=== PATIENT | male | born 1970 ===

== ENCOUNTER 2017-11-15 07:34 | Emergency (ER) | payer BC ==
[2017-11-15] MEDS ORDERED: NS 0.9% 1000 ML* 1,000 ML IV ONE (09:09)
[2017-11-15] MEDS ORDERED: Ketorolac INJ* 60 MG/2 ML VIAL IV PUSH ONE (09:10)
[2017-11-15] MEDS ORDERED: Orphenadrine Citrate IV* 30 MG/ML 2 ML VIAL IV ONE (09:10)
[2017-11-15] MEDS ORDERED: Dexamethasone IV* 4 MG/ML 5 ML VIAL (20 MG) IVPB ONE (09:10)
[2017-11-15 09:35] LABS: ABS Basophils 0.1 10^3/ul (0-0.2); ABS Eosinophils 0.1 10^3/ul (0-0.6); ABS Lymphocytes 1.1 10^3/ul (1.0-4.8); ABS Monocytes 0.5 10^3/ul (0-0.8); ABS Neutrophils 6.3 10^3/ul (1.5-7.7); ABS Nucleated RBC 0 10^3/ul; Eosinophil % 0.7 % (0-6); Hematocrit 45 % (42-52); Mean Corpuscular HGB Conc 33 g/dl (31-36); Mean Corpuscular Hemoglobin 28 pg (27-31); Mean Corpuscular Volume 85 fL (80-94); Mean Platelet Volume 9 um3 (7.4-10.4); Nucleated Red Blood Cells % 0; Platelet Count 217 10^3/ul (150-450); Red Blood Count 5.32 10^6/ul (4.0-5.4); Red Cell Distribution Width 13 % (10.5-15)
[2017-11-15 09:52] LABS: EGFR Non-African American 97.1 (>60)
--- NOTE | 2017-11-15 10:01 | RAD ---
HISTORY: Back pain, fall COMPARISONS: None VIEWS: 2, Frontal and lateral views of the thoracic spine. FINDINGS: ALIGNMENT: There is mild scoliotic curvature of the spine. VERTEBRAL BODIES: The vertebral body heights are normal. The interpedicular distances are normal. JOINTS: Unremarkable. INTERVERTEBRAL DISCS: There is mild diffuse loss of intervertebral disc height. SOFT TISSUE: Unremarkable OTHER: The visualized lungs are clear. IMPRESSION: MILD DEGENERATIVE CHANGES
--- NOTE | 2017-11-15 10:01 | RAD ---
HISTORY: Back pain, trauma COMPARISONS: None VIEWS: 3 , Frontal, lateral, and coned-down lateral sacral views of the lumbar spine FINDINGS: ALIGNMENT: The alignment is normal. VERTEBRAL BODIES: The vertebral body heights are normal. The interpedicular distances are normal. There is anterolateral marginal osteophyte formation at L5-S1. JOINTS: There is facet osteoporosis at L4-L5 and L5-S1 INTERVERTEBRAL DISCS: There is diffuse loss of intervertebral disc height. SOFT TISSUE: Unremarkable. OTHER: The pelvis is unremarkable. The lung bases are clear. IMPRESSION: DEGENERATIVE DISC DISEASE AND OSTEOARTHRITIS MOST PRONOUNCED AT L4-L5 AND L5-S1.
--- NOTE | 2017-11-15 12:20 | RAD ---
HISTORY: Rib pain status post fall COMPARISONS: None VIEWS: 7, Frontal view of the chest with frontal and oblique views of the left hemithorax FINDINGS: There is no displaced rib fracture or pneumothorax. The visualized lungs are clear. IMPRESSION: NO DISPLACED RIB FRACTURE OR PNEUMOTHORAX
[2017-11-15 12:56] VITALS: BP 110/78
--- NOTE | 2017-11-15 14:41 | ED ---
Alin Vernon Nilda, scribed for Marck Wise MD on 11/15/17 at 0858 . Back Pain - HPI Summary HPI Summary: This patient is a 47 year old M presenting to [facility] accompanied by with a chief complaint of constant left lower back pain that radiates up to the left shoulder s/p slipping on ice 3 days ago. Pt states he took 2 days off from work with no relief. This morning, pt states the sharp pain has become spasmic. The patient rates the pain 8/10 in severity. Symptoms aggravated by deep inspiration and expiration, movement, coughing, and sneezing and alleviated by nothing. Pt denies abnormal urinary symptoms. Pt states his usual back pain normally runs down his right leg. PMHx includes herniated disc 2007. - History of Current Complaint Chief Complaint: EDBackInjuryPain Stated Complaint: FALL BACK PAIN, ON SAT Time Seen by Provider: 11/15/17 08:33 Hx Obtained From: Patient Onset/Duration: Sudden Onset, Lasting Days, Still Present Onset/Duration: Started Days Ago, Traumatic, Still Present Timing: Constant Severity Currently: Severe Pain Intensity: 8 Pain Scale Used: 0-10 Numeric Character: Sharp Aggravating Symptom(s): Movement, Cough, Other - sneezing, deep inspiration and expiration Alleviating Symptom(s): Nothing Associated Signs And Symptoms: Positive: Other - left lower back pain that radiates up to the left shoulder - Allergies/Home Medications Allergies/Adverse Reactions: Allergies Allergy/AdvReac Type Severity Reaction Status Date / Time No Known Allergies Allergy Verified 11/15/17 07:39 PMH/Surg Hx/FS Hx/Imm Hx Musculoskeletal History: Reports: Other Musculoskeletal History - herniated disc Sensory History: Reports: Hx Contacts or Glasses Opthamlomology History: Reports: Hx Contacts or Glasses EENT History: Denies: Hx Deafness Infectious Disease History: No Infectious Disease History: Denies: Traveled Outside the [place] in Last 30 Days - Family History Known Family History: Positive: Other - [place] Negative: Hypertension, Diabetes - Social History Occupation: Employed Full-time Alcohol Use: Occasionally Substance Use Type: Reports: None Smoking Status (MU): Never Smoked Tobacco Review of Systems Genitourinary: Other - negative abnormal urinary symptoms Positive: Other - lower left back pain to left shoulder pain All Other Systems Reviewed And Are Negative: Yes Physical Exam - Summary Physical Exam Summary: General: Patient is a well developed and nourished male without any distress that is lying comfortably in the stretcher. Skin: [place], warm, dry HEAD AND FACE: No signs of trauma. EYES: PERRLA, EOMI x 2. EARS: Hearing grossly intact. MOUTH: Oropharynx within normal limits. NECK: Supple, trachea is midline, no adenopathy, no JVD. CHEST: Symmetric, positive tenderness at palpation in the left rib cage area mid clavicular line LUNGS: CTA bilaterally, no rales, rhonchi or wheezing CVS: RRR, no murmur, rub, or gallop ABDOMEN: soft and Nontender without masses, no guarding or rebound. Bowel sounds are active. No Hepatosplenomegaly. No signs of inguinal hernias. BACK: Patient walked in to the ED room with symmetric ambulation, No signs of limping, antalgic, able to bear weight. No signs of trauma, no soft tissue ecchymosis. Positive paraspinal muscle tenderness in the lumbar spine. No masses palpated. No point tenderness. No CVAT, no flank ecchymosis . No sacroiliac notch tenderness, No saddle anesthesia. ROM: flexion, extension, lateral bending and rotation limited secondary to pain. Straight Leg Raise: Negative. Patellar reflexes: brisk, symmetric Muscle strength lower extremities: Dorsiflexion, plantar flexion of ankles normal. Heel, toe walk normal. Pulses: Femoral, popliteal, posterior tibial, and pedal pulses strong and palpable. Rectal: Patient refused the exam Triage Information Reviewed: Yes Vital Signs On Initial Exam: Initial Vitals Temp Pulse Resp BP Pulse Ox 98.1 F 83 16 139/80 98 11/15/17 07:36 11/15/17 07:36 11/15/17 07:36 11/15/17 07:36 11/15/17 07:36 Vital Signs Reviewed: Yes Diagnostics - Vital Signs Vital Signs Temp Pulse Resp BP Pulse Ox 11/15/17 07:36 98.1 F 83 16 139/80 98 - Laboratory Lab Results: Lab Results 11/15/17 11/15/17 Range/Units 09:25 09:25 WBC 8.0 (3.5-10.8) 10^3/ul RBC 5.32 (4.0-5.4) 10^6/ul Hgb 15.0 (14.0-18.0) g/dl Hct 45 (42-52) % MCV 85 (80-94) fL MCH 28 (27-31) pg MCHC 33 (31-36) g/dl RDW 13 (10.5-15) % Plt Count 217 (150-450) 10^3/ul MPV 9 (7.4-10.4) um3 Neut % (Auto) 78.8 (38-83) % Lymph % (Auto) 14.0 L (25-47) % [place] % (Auto) 5.7 (1-9) % Eos % (Auto) 0.7 (0-6) % Baso % (Auto) 0.8 (0-2) % Absolute Neuts (auto) 6.3 (1.5-7.7) 10^3/ul Absolute Lymphs (auto) 1.1 (1.0-4.8) 10^3/ul Absolute Monos (auto) 0.5 (0-0.8) 10^3/ul Absolute Eos (auto) 0.1 (0-0.6) 10^3/ul Absolute Basos (auto) 0.1 (0-0.2) 10^3/ul Absolute Nucleated RBC 0 10^3/ul Nucleated RBC % 0 Sodium 136 (133-145) mmol/L Potassium 4.2 (3.5-5.0) mmol/L Chloride 103 (101-111) mmol/L Carbon Dioxide 26 (22-32) mmol/L Anion Gap 7 (2-11) mmol/L BUN 10 (6-24) mg/dL Creatinine 0.84 (0.67-1.17) mg/dL Est GFR ( Amer) 124.9 (>60) Est GFR (Non-Af Amer) 97.1 (>60) BUN/Creatinine Ratio 11.9 (8-20) Glucose 86 (70-100) mg/dL Calcium 9.8 (8.6-10.3) mg/dL Total Bilirubin 1.10 H (0.2-1.0) mg/dL AST 21 (13-39) U/L ALT 14 (7-52) U/L Alkaline Phosphatase 85 (34-104) U/L C-Reactive Protein 4.92 (< 5.00) mg/L Total Protein 8.2 (6.4-8.9) g/dL Albumin 4.3 (3.2-5.2) g/dL Globulin 3.9 (2-4) g/dL Albumin/Globulin Ratio 1.1 (1-3) Result Diagrams: 11/15/17 09:25 11/15/17 09:25 Lab Statement: Any lab studies that have been ordered have been reviewed, and results considered in the medical decision making process. - Radiology Ribs XR Radiology Interpretation Completed By: Radiologist - Ribs XR, per radiologist, reveals no displaced rib fracture or pneumothorax. Dr. Wise has reviewed this radiology report. T-Spine XR Radiology Interpretation Completed By: Radiologist - T-spine XR, per radiologist , reveals mild degenerative changes. Dr. Wise has reviewed this radiology report. Lumbar XR Radiology Interpretation Completed By: Radiologist - Lumbar XR, per radiologist , reveals degenerative disc disease and osteoarthritis most pronounced at L4-L5 and L5-S1. Dr. Wise has reviewed this radiology report. Re-Evaluation - Re-Evaluation First Eval Re-Evaluation Time: 10:55 Comment: Pt feeling better but states pain in left ribcage. Second Eval Re-Evaluation Time: 12:21 Comment: Pt is able to ambulate well with no aid. Pt had good steady walk and pain has subsided. Back Pain Course/Dx - Course Assessment/Plan: This patient is a 47 year old M presenting [place] [facility] accompanied by with a chief complaint of constant left lower back pain that radiates up to the left shoulder s/p slipping on ice 3 days ago. Pt states he took 2 days off from work with no relief. This morning, pt states the sharp pain has become spasmic. The patient rates the pain 8/10 in severity. Symptoms aggravated by deep inspiration and expiration, movement, coughing, and sneezing , and alleviated by nothing. Pt denies abnormal urinary symptoms. PMHx includes herniated disc 2007. Pt states his usual back pain is tolerable and normally runs down his right leg. Ribs XR, per radiologist, reveals no displaced rib fracture or pneumothorax. Dr. Wise has reviewed this radiology report. Lumbar XR, per radiologist, reveals degenerative disc disease and osteoarthritis most pronounced at L4-L5 and L5-S1. Dr. Wise has reviewed this radiology report. T- spine XR, per radiologist, reveals mild degenerative changes. Dr. Wise has reviewed this radiology report. In the ED course, the patient was given IV fluids, Toradol, Norflex, and Decadron. On re-eval, pt is able to ambulate well with no aid. Pt had good steady walk and pain has subsided. The pt is hemodynamically stable, alert and oriented x3. Pt will be D/C with Dx of back pain and a prescription for [place], Robaxin, and Medrol. Pt understands and is agreeable with this plan. At this point I discussed all the findings and test results with the patient. Patient was instructed to return to the emergency room immediately if any of the symptoms return or worsens. Patient understands and agrees. Patient is able to ambulate freely w/o aid or limp in the ER. Plan of care was discussed with the patient and patient understands and agrees. All questions were answered at patient satisfaction. There were no further complaints or concerns. Neurological exam before discharge: Patient is alert and oriented x 3. No acute neurological deficits. Patient is hemodynamically stable. Patient is to follow up with primary care physician in the next 2 3 days. He understands and agrees. - Diagnoses Differential Diagnosis/HQI/PQRI: Positive: Cauda Equina Syndrome, Compressive Cord Syndrome, Herniated Disc, Strain, Sprain Provider Diagnoses: Back pain Discharge - Discharge Plan Condition: Stable Disposition: HOME Prescriptions: HYDROcodone/ACETAMIN 5-325 MG* [[place] 5-325 TAB*] 1 tab PO Q6H PRN #12 tab MDD 4 PRN Reason: Pain Methocarbamol [Robaxin-750 MG TAB] 750 mg PO TID #9 tab methylPREDNISolone TAB* [Medrol TAB*] 4 - 8 mg PO .SEE ANTHONY #1 anthony Patient Education Materials: Back Pain (ED) Forms: *Work Release Referrals: Haroon HANSEN,Sidney Cervantes [Primary Care Provider] - 3 Days Additional Instructions: RETURN TO THE EMERGENCY DEPARTMENT FOR CHANGING OR WORSENING SYMPTOMS. The documentation as recorded by the Alin jacob Nilda accurately reflects the service I personally performed and the decisions made by Frandy king Walter, MD.
== END 2017-11-15 12:55 | disposition home or self-care (01) ==
LOC: ED 07:34
DX: M54.9 Dorsalgia, unspecified (principal); R05 Cough; M25.512 Pain in left shoulder
CPT/HCPCS: 36415; 72070; 72100; 80053; 85025; 86140; 96374; 96375; 99282; J1100; J1885; J2360